=== PATIENT | male | born 1990 | race Caucasian/White ===

== ENCOUNTER 2017-01-01 17:10 | Emergency (ER) | payer MEDICAID, OTHER ==
--- NOTE | 2017-01-01 18:30 | ER Document Report ---
ED Medical Screen (RME) - General Chief Complaint: Probable Seizure Stated Complaint: POSSIBLE SEIZURE Time Seen by Provider: 01/01/17 18:22 Mode of Arrival: Ambulatory Information source: Patient, Parent Notes: 26-year-old male history of Tourette's syndrome presents after a seizure-like episode lasting 5 minutes. Mother denies any fevers or chills Patient had a postictal state I have greeted and performed a rapid initial assessment of this patient. A comprehensive ED assessment and evaluation of the patient, analysis of test results and completion of the medical decision making process will be conducted by additional ED providers. PHYSICAL EXAMINATION: GENERAL: Well-appearing, well-nourished and in no acute distress. HEAD: Atraumatic, normocephalic. EYES: Pupils equal round extraocular movements intact, conjunctiva are normal. ENT: Nares patent NECK: Normal range of motion LUNGS: No respiratory distress Musculoskeletal: Normal range of motion NEUROLOGICAL: Normal speech, normal gait. PSYCH: Normal mood, normal affect. SKIN: Warm, Dry, normal turgor, no rashes or lesions noted. TRAVEL OUTSIDE OF THE [place] IN LAST 30 DAYS: No - Related Data Allergies/Adverse Reactions: codeine [Codeine] Allergy (Intermediate, Verified 01/01/17 17:25) rash,itching morphine [Morphine] Allergy (Verified 01/01/17 17:25) Past Medical History Renal/ Medical History: Denies: Hx Peritoneal Dialysis Psychiatric Medical History: Reports: Hx Attention Deficit Hyperactivity Disorder, Hx Bipolar Disorder, Hx Schizophrenia - Immunizations Hx Diphtheria, Pertussis, Tetanus Vaccination: No Physical Exam - Vital signs Vitals: Temp Pulse Resp BP Pulse Ox 97.4 F 99 16 121/70 98 01/01/17 17:26 01/01/17 17:26 01/01/17 17:26 01/01/17 17:26 01/01/17 17:26 Course - Vital Signs Vital signs: Temp Pulse Resp BP Pulse Ox 97.4 F 99 16 121/70 98 01/01/17 17:26 01/01/17 17:26 01/01/17 17:26 01/01/17 17:26 01/01/17 17:26
--- NOTE | 2017-01-01 19:24 | ER Document Report ---
ED General - General Chief Complaint: Probable Seizure Stated Complaint: POSSIBLE SEIZURE Time Seen by Provider: 01/01/17 18:22 Mode of Arrival: Ambulatory Notes: Patient is a 26-year-old male with past medical history of Tourette syndrome and developmental delay who presents with family concerned about a possible seizure. Patient apparently had a five-minute episode prior to arrival in which he is entirely body stiffened and his head was turned towards the right. Parents note that he was also making a loud yelling like noise. They note that he can often have similar symptoms with his Tourette's syndrome but that they never are this severe her last this long. The episode did terminate spontaneously. After the episode stopped the patient immediately got out of the vehicle, open the door up and went to go get some of his relatives to get him into the car. This contrary to what is written in the triage assessment and mother is very clear that he had no postictal-like symptoms. The mother notes that he did not all seem confused afterwards and was immediately alert and oriented. He has no prior history of seizures. No missed medications or changes in medication dosing. Nothing triggered today's episode. TRAVEL OUTSIDE OF THE [place] IN LAST 30 DAYS: No - Related Data Allergies/Adverse Reactions: codeine [Codeine] Allergy (Intermediate, Verified 01/01/17 17:25) rash,itching morphine [Morphine] Allergy (Verified 01/01/17 17:25) Past Medical History - General Information source: Patient, Parent - Social History Smoking Status: Never Smoker Frequency of alcohol use: None Drug Abuse: None Lives with: Parents Family History: Reviewed & Not Pertinent Patient has suicidal ideation: No Patient has homicidal ideation: No Renal/ Medical History: Denies: Hx Peritoneal Dialysis Psychiatric Medical History: Reports: Hx Attention Deficit Hyperactivity Disorder, Hx Bipolar Disorder, Hx Schizophrenia - Immunizations Hx Diphtheria, Pertussis, Tetanus Vaccination: No Review of Systems - Review of Systems Notes: Constitutional: Negative for fever. HENT: Negative for sore throat. Eyes: Negative for visual changes. Cardiovascular: Negative for chest pain. Respiratory: Negative for shortness of breath. Gastrointestinal: Negative for abdominal pain, vomiting or diarrhea. Genitourinary: Negative for dysuria. Musculoskeletal: Negative for back pain. Skin: Negative for rash. Neurological: Negative for headaches, weakness or numbness. 10 point ROS negative except as marked above and in HPI. Physical Exam - Vital signs Vitals: Temp Pulse Resp BP Pulse Ox 97.4 F 99 16 121/70 98 01/01/17 17:26 01/01/17 17:26 01/01/17 17:26 01/01/17 17:26 01/01/17 17:26 Interpretation: Normal Notes: PHYSICAL EXAMINATION: GENERAL: Well-appearing, well-nourished and in no acute distress. HEAD: Atraumatic, normocephalic. EYES: Pupils equal round and reactive to light, extraocular movements intact, sclera anicteric, conjunctiva are normal. ENT: nares patent, oropharynx clear without exudates. Moist mucous membranes. NECK: Normal range of motion, supple without lymphadenopathy LUNGS: Breath sounds clear to auscultation bilaterally and equal. No wheezes rales or rhonchi. HEART: Regular rate and rhythm without murmurs ABDOMEN: Soft, nontender, normoactive bowel sounds. No guarding, no rebound. No masses appreciated. EXTREMITIES: Normal range of motion, no pitting or edema. No cyanosis. NEUROLOGICAL: Face symmetric. Tongue protrudes midline. Extraocular motions intact. Pupils are 2 mm and equally reactive. Normal speech, normal gait. 5 out of 5 strength in both the distal and proximal upper and lower extremities bilaterally. Sensation is grossly intact throughout. Finger to nose testing normal. Pronator drift normal. PSYCH: Apparent mild cognitive delay. Calm and Cooperative. SKIN: Warm, Dry, normal turgor, no rashes or lesions noted. Course - Re-evaluation Re-evalutation: 01/01/17 19:20 Patient presents with symptoms had a history consistent with PNES versus Tourette syndrome exacerbation. Clinical history is inconsistent with an epileptic seizure and I do not believe any imaging or labs as indicated. Please this does not appear consistent with a epileptogenic seizure as the patient was immediately alert and oriented after termination of his bilateral upper and lower extremity jerking and tonic episode. The mother even notes that he got out of the vehicle and open the door for grandchildren who are coming into the car. This implies that the time of the episode ending patient was oriented not only to location but also to the reason for him being there and how he could help the situation. This is the completely inconsistent with a bi-hemispheric epileptogenic episode which by definition requires a postictal phase. I therefore suspect this is more likely an exacerbation of his Tourette' s syndrome with a severe episode for unclear reason or PNES. Neurologic exam unremarkable without any focal neurologic deficits. No trauma sustained during today's episode. I have asked the family to follow closely with the patient's primary providers for consideration of additional workup as an outpatient given the absence of any clinical symptoms at this time, no neurologic deficits, and a history that is not consistent with an acute seizure do not believe any further workup is indicated at this time. At this time will discharge with return precautions and follow-up recommendations. Verbal discharge instructions given a the bedside and opportunity for questions given. Medication warnings reviewed. Patient is in agreement with this plan and has verbalized understanding of return precautions and the need for primary care follow-up in the next 24-72 hours. - Vital Signs Vital signs: Temp Pulse Resp BP Pulse Ox 98.6 F 80 16 142/80 H 99 01/01/17 19:55 01/01/17 19:55 01/01/17 19:55 01/01/17 19:55 01/01/17 19:55 Discharge - Discharge Clinical Impression: Tonic clonic convulsion Condition: Good Disposition: HOME, SELF-CARE Additional Instructions: The exact cause of your symptoms today is unclear but may be due to an exacerbation of your Tourette syndrome. Please return to the emergency department if you have recurrence of an episode like this. Please also return if you develop focal weakness, numbness, vomiting, fever greater than 101F, or any other symptoms that are worrisome to you
[2017-01-01 19:59] VITALS: BP 142/80
== END 2017-01-01 20:00 | disposition home or self-care (01) ==
LOC: ER 17:10
DX: R56.9 Unspecified convulsions (principal)
CPT/HCPCS: 99283

== ENCOUNTER → 2017-02-10 | Outpatient (CLI) | payer MEDICAID ==
--- NOTE | 2017-02-14 14:09 | EEG PRO FEE REPORT ---
EEG INTERPRETATION PATIENT NAME: GUZMAN GABRIEL ROOM#: ORDER#: [id number] DATE OF STUDY: 02/10/2017 : 1990 REFERRING MD: TORI CALDERON M.D. DIAGNOSIS: Epilepsy MEDICATIONS: Not listed REPORT This is a 16 channel EEG recording with a channel of EKG done during wakefulness, hyperventilation, photic stimulation, and early stages of sleep. The background activity is 9-10 cycles per second, well formed and reactive alpha seen best in the posterior electrodes. Beta 18-22 cycles per second, intermittent, nonlocalized or sustained slower forms seen. Severe artifact seen throughout from muscle movement and eye movement. Hyperventilation, photic stimulation were administered and did not evoke any abnormal discharges. Throughout the tracing more slowing seen as patient goes to early stages of sleep. IMPRESSION Although this EEG contains moderate to severe artifact no definite epileptiform discharges seen. INTERPRETING PHYSICIAN: REBA CHAMBERS M.D. /: MTEFTONY TT: [id number] ID: [id number] /: [id number] TD: 1230 JOB: [id number] cc:Tyree JIMENEZ M.D. >
== END ==
LOC: NEURO 08:04
PROVIDERS: ATTEND Pediatrics
DX: G40.909 Epilepsy, unspecified, not intractable, without status epilepticus (principal)
CPT/HCPCS: 95819

== ENCOUNTER → 2019-05-28 | Outpatient (CLI) | payer MEDICAID ==
[2019-05-28 09:01] LABS: MEAN CORPUSCULAR HEMOGLOBIN 31.9 pg (27.0-33.4); MEAN CORPUSCULAR HGB CONC 33.4 g/dL (32.0-36.0); MEAN CORPUSCULAR VOLUME 95 fl (80-97); PLATELET COUNT 202 10^3/uL (150-450); WHITE BLOOD COUNT 5.7 10^3/uL (4.0-10.5)
[2019-05-28 09:17] LABS: ABSOLUTE LYMPHOCYTES# (MANUAL) 2.4 10^3/uL (0.5-4.7); ABSOLUTE MONOCYTES # (MANUAL) 0.3 10^3/uL (0.1-1.4); ANISOCYTOSIS SLIGHT; BASOPHILS % (MANUAL) 2 % (0-2); EOSINOPHILS % (MANUAL) 0 % (0-6); LYMPHOCYTES % (MANUAL) 42 % (13-45); MONOCYTES % (MANUAL) 6 % (3-13); PLATELET COMMENT ADEQUATE; POLYCHROMASIA SLIGHT; SEGMENTED NEUTROPHILS % (MAN) 50 % (42-78); TOTAL CELLS COUNTED 100
[2019-05-28 09:18] LABS: ANION GAP 8 (5-19); BLOOD UREA NITROGEN 11 mg/dL (7-20); CALCIUM 9.3 mg/dL (8.4-10.2); CARBON DIOXIDE 31 mmol/L (22-30); CHLORIDE 101 mmol/L (98-107); GLUCOSE 80 mg/dL (75-110); POTASSIUM 4.7 mmol/L (3.6-5.0)
== END ==
LOC: LAB 08:11
PROVIDERS: ATTEND Physician Assistant
DX: Z79.899 Other long term (current) drug therapy (principal); F84.0 Autistic disorder
CPT/HCPCS: 36415; 80048; 80164; 85025

== ENCOUNTER → 2020-04-04 | Outpatient (CLI) | payer MEDICAID ==
[2020-04-04 12:16] LABS: ABSOLUTE EOSINOPHILS # (AUTO) 0.1 10^3/uL (0.0-0.6); ABSOLUTE LYMPHOCYTES (AUTO) 1.9 10^3/uL (0.5-4.7); ABSOLUTE MONOCYTES (AUTO) 1.1 10^3/uL (0.1-1.4); ABSOLUTE NEUT (AUTO) 4.1 10^3/uL (1.7-8.2); BASOPHILS % (AUTO) 0.6 % (0-2); EOSINOPHILS % (AUTO) 0.7 % (0-6); HEMOGLOBIN 14.2 g/dL (13.5-17.0); MEAN CORPUSCULAR HEMOGLOBIN 32.5 pg (27.0-33.4); MEAN CORPUSCULAR HGB CONC 33.9 g/dL (32.0-36.0); MEAN CORPUSCULAR VOLUME 96 fl (80-97); MONOCYTES % (AUTO) 15.7 % (3-13); PLATELET COUNT 198 10^3/uL (150-450); RED BLOOD COUNT 4.37 10^6/uL (4.35-5.55); RED CELL DISTRIBUTION WIDTH 14.3 % (11.5-14.0); TOTAL CELLS COUNTED % (AUTO) 100 %; WHITE BLOOD COUNT 7.2 10^3/uL (4.0-10.5)
[2020-04-04 12:29] LABS: ALBUMIN 4.5 g/dL (3.5-5.0); ALKALINE PHOSPHATASE 69 U/L (38-126); ANION GAP 6 (5-19); ASPARTATE AMINO TRANSFERASE 35 U/L (17-59); BILIRUBIN,TOTAL 0.4 mg/dL (0.2-1.3); BLOOD UREA NITROGEN 11 mg/dL (7-20); CALCIUM 9.4 mg/dL (8.4-10.2); CARBON DIOXIDE 33 mmol/L (22-30); CHLORIDE 100 mmol/L (98-107); CHOLESTEROL 168.92 mg/dL (0-200); GLUCOSE 72 mg/dL (75-110); POTASSIUM 5.6 mmol/L (3.6-5.0); TOTAL PROTEIN 7.6 g/dL (6.3-8.2); TRIGLYCERIDES 80 mg/dL (<150)
[2020-04-04 12:40] LABS: DIRECT LDL 90 mg/dL (<100)
== END ==
LOC: OD 10:27
PROVIDERS: ATTEND Physician Assistant
DX: F84.0 Autistic disorder (principal); Z79.899 Other long term (current) drug therapy
CPT/HCPCS: 36415; 80053; 80061; 80164; 83036; 85025